=== PATIENT | male | born 1955 | race Caucasian/White ===

== ENCOUNTER 2016-11-01 12:22 | Inpatient (IN) | payer OTHER ==
[~2016-11-01] VITALS: Ht 190.5 cm; Wt 93.3 kg
[2016-11-01 13:59] LABS: EOSINOPHIL (%) 0.1 % (0-5); HEMATOCRIT 47.7 % (38.0-50.0); IMMATURE GRANULOCYTE (%) 0.4 % (0.0-0.7); INSTRUMENT ABS NEUTROPHIL CT 9.4 K/uL; MCH 32.1 PG (29.0-34.0); MCV 94.5 FL (86-99); MEAN PLAT.VOLUME 9.6 uM^3 (9.0-12.4); MONOCYTE (%) 4.4 % (3-12); MONOCYTE COUNT 0.5 K/uL (0-0.8); NEUTROPHIL (%) 86.1 % (45-76); NEUTROPHIL COUNT 9.4 K/uL (1.8-6.4); PLATELET COUNT 266 K/uL (156-360); RBC DIS.WIDTH-SD 41.8 % (39-53); RED BLOOD COUNT 5.05 M/uL (4.00-5.50)
[2016-11-01 14:01] LABS: CHLORIDE 106 mEq/L (99-109); POTASSIUM 4.5 mEq/L (3.7-5.4); SODIUM 138 mEq/L (136-147)
[2016-11-01 14:03] LABS: GLUCOSE 116 mg/dL (70-99)
[2016-11-01 14:05] LABS: ANION GAP 12 MEQ/L (2-14); TOTAL BILIRUBIN 0.9 mg/dL (0.0-1.0)
[2016-11-01 14:07] LABS: ALKALINE PHOSPHATASE 92 IU/L (3-129); GFR ESTIMATE (CALCULATED) > 59 mL/min/
[2016-11-01 14:08] LABS: UREA NITROGEN (BUN) 21 mg/dL (9-23)
[2016-11-01 14:10] LABS: LIPASE 20 U/L (1.0-51.0)
[2016-11-01 15:11] LABS: INTERNAL CONTROL VALID? YES; MONOSPOT (MONONUCLEOSIS SEROL) NEGATIVE
[2016-11-01] MEDS ORDERED: METRONIDAZOLE45 GM TP (16:11)
[2016-11-01] MEDS ORDERED: LISINOPRIL40 MG PO (16:11)
[2016-11-01] MEDS ORDERED: NORVASC10 MG PO (16:29)
[2016-11-01 20:18] VITALS: BP 119/64
[2016-11-02 00:43] VITALS: BP 106/56
[2016-11-02 05:00] LABS: HEMATOCRIT 41.1 % (38.0-50.0); MCH 32.2 PG (29.0-34.0); MCHC 33.6 G/DL (30.0-36.0); MEAN PLAT.VOLUME 9.3 uM^3 (9.0-12.4); PLATELET COUNT 233 K/uL (156-360); RBC DIS.WIDTH-CV 12.2 % (11.8-14.6); RBC DIS.WIDTH-SD 42.7 % (39-53); RED BLOOD COUNT 4.28 M/uL (4.00-5.50); WHITE BLOOD COUNT 8.7 K/uL (4.1-10.2)
[2016-11-02 05:18] LABS: CHLORIDE 109 mEq/L (99-109); POTASSIUM 3.9 mEq/L (3.7-5.4); SODIUM 139 mEq/L (136-147)
[2016-11-02 05:21] LABS: GLUCOSE 98 mg/dL (70-99)
[2016-11-02 05:22] LABS: ANION GAP 7 MEQ/L (2-14)
[2016-11-02 05:23] LABS: TOTAL BILIRUBIN 0.8 mg/dL (0.0-1.0)
[2016-11-02 05:24] LABS: ALKALINE PHOSPHATASE 73 IU/L (3-129); GFR ESTIMATE (CALCULATED) > 59 mL/min/
[2016-11-02 05:25] LABS: UREA NITROGEN (BUN) 14 mg/dL (9-23)
[2016-11-02 05:26] LABS: DIRECT BILIRUBIN 0.3 mg/dL (0.0-0.3)
[2016-11-02 08:40] VITALS: BP 129/71
[2016-11-02 10:26] LABS: INTERNAL CONTROL VALID? YES
[2016-11-02 11:06] LABS: C DIFF TOXIN NEGATIVE (NEGATIVE)
[2016-11-02 11:09] LABS: PROBE CHECK PASS; SPECIMEN PROCESSING CONTROL PASS
[2016-11-02 11:44] VITALS: BP 125/68
[2016-11-02] MEDS ORDERED: NORVASC5 MG PO (16:06)
[2016-11-02 17:01] VITALS: BP 133/90
[2016-11-02 19:28] VITALS: BP 161/89
[2016-11-03 00:09] VITALS: BP 142/83
[2016-11-03 05:47] LABS: ALKALINE PHOSPHATASE 76 IU/L (3-129); ANION GAP 10 MEQ/L (2-14); CHLORIDE 105 MEQ/L (99-109); GFR ESTIMATE (CALCULATED) > 59 mL/min/; GLUCOSE 99 mg/dL (70-99); POTASSIUM 3.5 MEQ/L (3.7-5.4); SAMPLE HEMOLYSIS CHECK 0; SAMPLE ICTERIC CHECK 0; SAMPLE LIPEMIA CHECK 0; SODIUM 140 MEQ/L (136-147); TOTAL BILIRUBIN 0.9 MG/DL (0.0-1.0); UREA NITROGEN (BUN) 8 mg/dL (9-23)
[2016-11-03 06:03] LABS: HEMATOCRIT 41.5 % (38.0-50.0); MCH 31.9 PG (29.0-34.0); MCHC 33.7 G/DL (30.0-36.0); MCV 94.5 FL (86-99); MEAN PLAT.VOLUME 9.6 uM^3 (9.0-12.4); PLATELET COUNT 221 K/uL (156-360); RBC DIS.WIDTH-CV 11.8 % (11.8-14.6); RBC DIS.WIDTH-SD 41.1 % (39-53); RED BLOOD COUNT 4.39 M/uL (4.00-5.50); WHITE BLOOD COUNT 8.5 K/uL (4.1-10.2)
[2016-11-03 08:35] VITALS: BP 160/90
[2016-11-03 16:30] VITALS: BP 163/94
[2016-11-03] MEDS ORDERED: METRONIDAZOLE500 MG PO (18:27)
[2016-11-03] MEDS ORDERED: CIPRO750 MG PO (18:28)
== END 2016-11-03 19:38 | disposition home or self-care (01) | DRG 392 ==
LOC: EME 12:22 → 3EAST 16:33 → EDOF 16:33 → 3EAST 18:07
PROVIDERS: Emergency Medicine; Internal Medicine
DX: A09 Infectious gastroenteritis and colitis, unspecified (principal); R19.7 Diarrhea, unspecified; I10 Essential (primary) hypertension; K92.1 Melena; R09.02 Hypoxemia; G47.33 Obstructive sleep apnea (adult) (pediatric); E78.5 Hyperlipidemia, unspecified; R11.10 Vomiting, unspecified
CPT/HCPCS: 74177; 80048; 80053; 80076; 83605; 83630; 83690; 85025; 85027; 86308; 87177; 87329; 87493; 87506; 99281; 99285; J1956; J2270; J2405; J2765; J7030; S0030

== ENCOUNTER → 2016-12-16 | Outpatient (CLI) | payer OTHER ==
[~2016-12-16] VITALS: Ht 190.5 cm; Wt 93.0 kg
[~2016-12-16] MED LIST: CIPRO750 MG PO; LISINOPRIL40 MG PO; METRONIDAZOLE45 GM TP; METRONIDAZOLE500 MG PO; NORVASC10 MG PO; NORVASC5 MG PO
== END | disposition home or self-care (01) ==
LOC: AMB 07:46
PROC: 0DBE8ZX Excision of Large Intestine, Via Natural or Artificial Opening Endoscopic, Diagnostic (ICD-10-PCS; principal; 2016-12-16)
DX: K63.89 Other specified diseases of intestine (principal); R10.32 Left lower quadrant pain; I10 Essential (primary) hypertension; R74.8 Abnormal levels of other serum enzymes; Z82.49 Family history of ischemic heart disease and other diseases of the circulatory system; Z83.3 Family history of diabetes mellitus; Z82.5 Family history of asthma and other chronic lower respiratory diseases
CPT/HCPCS: 88305; J2250; J3010